=== PATIENT | male | born 1945 | race Caucasian/White ===

== ENCOUNTER 2016-06-26 10:02 | Outpatient (CLI) | payer MEDICARE, OTHER ==
[2016-02-11 11:55] VITALS: BP 121/58
== END 2016-06-26 10:03 ==
LOC: LAB 10:02
PROVIDERS: ATTEND Internal Medicine Clinical Cardiac Electrophysiology
DX: Z51.81 Encounter for therapeutic drug level monitoring (principal); Z79.01 Long term (current) use of anticoagulants; I48.91 Unspecified atrial fibrillation
CPT/HCPCS: 36415; 85610

== ENCOUNTER 2016-07-04 10:30 | Outpatient (CLI) | payer MEDICARE, OTHER ==
[2016-02-11 11:55] VITALS: BP 121/58
== END 2016-07-04 10:40 ==
LOC: LAB 10:30
PROVIDERS: ATTEND Internal Medicine Clinical Cardiac Electrophysiology
DX: Z51.81 Encounter for therapeutic drug level monitoring (principal); Z79.01 Long term (current) use of anticoagulants; I48.91 Unspecified atrial fibrillation
CPT/HCPCS: 36415; 85610

== ENCOUNTER 2016-07-17 10:15 | Outpatient (CLI) | payer MEDICARE, OTHER ==
[2016-02-11 11:55] VITALS: BP 121/58
== END 2016-07-17 10:16 ==
LOC: LAB 10:15
PROVIDERS: ATTEND Internal Medicine Clinical Cardiac Electrophysiology
DX: I48.91 Unspecified atrial fibrillation (principal)
CPT/HCPCS: 36415; 85610

== ENCOUNTER 2016-07-31 10:49 | Outpatient (CLI) | payer MEDICARE, OTHER ==
[2016-02-11 11:55] VITALS: BP 121/58
== END 2016-07-31 10:50 ==
LOC: LAB 10:49
PROVIDERS: ATTEND Internal Medicine Clinical Cardiac Electrophysiology
DX: I48.91 Unspecified atrial fibrillation (principal)
CPT/HCPCS: 36415; 85610

== ENCOUNTER 2016-08-27 10:13 | Outpatient (CLI) | payer MEDICARE, OTHER ==
[2016-02-11 11:55] VITALS: BP 121/58
== END 2016-08-27 10:14 ==
LOC: LAB 10:13
PROVIDERS: ATTEND Internal Medicine Clinical Cardiac Electrophysiology
DX: Z51.81 Encounter for therapeutic drug level monitoring (principal); Z79.01 Long term (current) use of anticoagulants; I48.91 Unspecified atrial fibrillation
CPT/HCPCS: 36415; 85610

== ENCOUNTER 2016-09-11 11:00 | Outpatient (CLI) | payer MEDICARE, OTHER ==
[2016-02-11 11:55] VITALS: BP 121/58
[2016-09-11 11:28] LABS: BASOPHILS % 0.5 (0.0-1.5); EOSINOPHILS % 3.1 % (0.0-6.8); MEAN CORPUSCULAR HEMOGLOBIN 21.2 pg (28.0-34.0); MEAN CORPUSCULAR VOLUME 78.3 fl (80.0-100.0); MONOCYTES % 8.1 % (0.0-11.0); NEUTROPHILS # 4.4 # k/uL (1.4-7.7)
== END 2016-09-11 11:02 ==
LOC: LAB 11:00
PROVIDERS: ATTEND Internal Medicine Clinical Cardiac Electrophysiology
DX: Z51.81 Encounter for therapeutic drug level monitoring (principal); Z79.01 Long term (current) use of anticoagulants; I48.91 Unspecified atrial fibrillation; Z12.5 Encounter for screening for malignant neoplasm of prostate
CPT/HCPCS: 36415; 84153; 85025; 85610

== ENCOUNTER 2016-09-25 09:47 | Outpatient (CLI) | payer MEDICARE, OTHER ==
[2016-02-11 11:55] VITALS: BP 121/58
== END 2016-09-25 09:50 ==
LOC: LAB 09:47
PROVIDERS: ATTEND Internal Medicine Clinical Cardiac Electrophysiology
DX: Z51.81 Encounter for therapeutic drug level monitoring (principal); Z79.01 Long term (current) use of anticoagulants; I48.91 Unspecified atrial fibrillation
CPT/HCPCS: 36415; 85610

== ENCOUNTER 2016-09-26 09:13 | Outpatient (CLI) | payer MEDICARE, OTHER ==
[2016-02-11 11:55] VITALS: BP 121/58
== END 2016-09-26 09:14 ==
LOC: LAB 09:13
PROVIDERS: ATTEND Internal Medicine Cardiovascular Disease
DX: Z51.81 Encounter for therapeutic drug level monitoring (principal); Z79.01 Long term (current) use of anticoagulants; I48.91 Unspecified atrial fibrillation
CPT/HCPCS: 36415; 85610

== ENCOUNTER 2016-09-27 08:52 | Outpatient (CLI) | payer MEDICARE, OTHER ==
[2016-02-11 11:55] VITALS: BP 121/58
== END 2016-09-27 08:53 ==
LOC: LAB 08:52
PROVIDERS: ATTEND Internal Medicine Clinical Cardiac Electrophysiology
DX: Z51.81 Encounter for therapeutic drug level monitoring (principal); Z79.01 Long term (current) use of anticoagulants; I48.91 Unspecified atrial fibrillation
CPT/HCPCS: 36415; 85610

== ENCOUNTER 2016-09-30 08:45 | Outpatient (CLI) | payer MEDICARE, OTHER ==
[2016-02-11 11:55] VITALS: BP 121/58
== END 2016-09-30 08:46 ==
LOC: LAB 08:45
PROVIDERS: ATTEND Internal Medicine Cardiovascular Disease
DX: Z51.81 Encounter for therapeutic drug level monitoring (principal); Z79.01 Long term (current) use of anticoagulants; I48.91 Unspecified atrial fibrillation
CPT/HCPCS: 36415; 85610

== ENCOUNTER 2016-10-04 11:00 | Outpatient (CLI) | payer MEDICARE, OTHER ==
[2016-02-11 11:55] VITALS: BP 121/58
== END 2016-10-04 11:02 ==
LOC: LAB 11:00
PROVIDERS: ATTEND Internal Medicine Clinical Cardiac Electrophysiology
DX: Z51.81 Encounter for therapeutic drug level monitoring (principal); Z79.01 Long term (current) use of anticoagulants; I48.91 Unspecified atrial fibrillation
CPT/HCPCS: 36415; 85610

== ENCOUNTER 2016-10-10 13:44 | Outpatient (CLI) | payer MEDICARE, OTHER ==
[2016-02-11 11:55] VITALS: BP 121/58
== END 2016-10-10 13:45 ==
LOC: LAB 13:44
PROVIDERS: ATTEND Internal Medicine Clinical Cardiac Electrophysiology
DX: Z51.81 Encounter for therapeutic drug level monitoring (principal); Z79.01 Long term (current) use of anticoagulants; I48.2 Chronic atrial fibrillation
CPT/HCPCS: 36415; 85610

== ENCOUNTER 2016-10-18 09:09 | Outpatient (CLI) | payer MEDICARE, OTHER ==
[2016-02-11 11:55] VITALS: BP 121/58
== END 2016-10-18 09:10 ==
LOC: LAB 09:09
PROVIDERS: ATTEND Internal Medicine Cardiovascular Disease
DX: Z51.81 Encounter for therapeutic drug level monitoring (principal); Z79.01 Long term (current) use of anticoagulants; I48.91 Unspecified atrial fibrillation
CPT/HCPCS: 36415; 85610

== ENCOUNTER 2016-10-31 07:27 | Outpatient (CLI) | payer MEDICARE, OTHER ==
[2016-02-11 11:55] VITALS: BP 121/58
== END 2016-10-31 07:30 ==
LOC: LAB 07:27
PROVIDERS: ATTEND Internal Medicine Clinical Cardiac Electrophysiology
DX: I48.91 Unspecified atrial fibrillation (principal)
CPT/HCPCS: 36415; 85610

== ENCOUNTER 2016-11-05 13:08 | Outpatient (CLI) | payer MEDICARE, OTHER ==
[2016-02-11 11:55] VITALS: BP 121/58
--- NOTE | 2016-11-05 17:51 | Diagnostic Imaging Report ---
[facility] [address] [facility].[address] [id number] Report Submission Date: November 05, 2016 4:00:12 PM CDT Patient Study Name: NEENA KHAN Date: November 05, 2016 1:12:52 PM CDT Modality Type: CR Gender: M Description: CHEST : 45 Institution: [facility] Physician: ALEJO GUTIERREZ Chest 2 views History: Hemoptysis Findings: Aortic valve replacement, triple lead implantable cardiac defibrillator, calcified granulomas, trace pleural effusions, mild cardiomegaly , and pulmonary vascular congestion are observed. There is no confluent infiltrate. Proximal right humerus suture anchors are present. Mild hyperinflation is present. The implantable cardiac defibrillator new. The trace pleural effusions and pulmonary vascular congestion are new since the December 01, 2015 exam. Cardiomegaly has progressed. Impression: New implantable defibrillator and new mild congestive heart failure. Otherwise no change. Electronically signed on November 05, 2016 4:00:12 PM CDT by: Jorje ULLOA
== END 2016-11-05 13:10 ==
LOC: RAD 13:08
PROVIDERS: ATTEND Internal Medicine Cardiovascular Disease
DX: R09.3 Abnormal sputum (principal); I48.0 Paroxysmal atrial fibrillation
CPT/HCPCS: 71020

== ENCOUNTER 2016-11-15 10:16 | Outpatient (CLI) | payer MEDICARE, OTHER ==
[2016-02-11 11:55] VITALS: BP 121/58
== END 2016-11-15 10:17 ==
LOC: LAB 10:16
PROVIDERS: ATTEND Internal Medicine Clinical Cardiac Electrophysiology
DX: I48.91 Unspecified atrial fibrillation (principal)
CPT/HCPCS: 36415; 85610

== ENCOUNTER 2016-11-22 08:52 | Outpatient (CLI) | payer MEDICARE, OTHER ==
[2016-02-11 11:55] VITALS: BP 121/58
== END 2016-11-22 09:35 ==
LOC: LAB 08:52
PROVIDERS: ATTEND Internal Medicine Cardiovascular Disease
DX: I48.91 Unspecified atrial fibrillation (principal)
CPT/HCPCS: 36415; 85610

== ENCOUNTER 2016-11-29 11:22 | Outpatient (CLI) | payer MEDICARE, OTHER ==
[2016-02-11 11:55] VITALS: BP 121/58
== END 2016-11-29 11:30 ==
LOC: LAB 11:22
PROVIDERS: ATTEND Internal Medicine Clinical Cardiac Electrophysiology
DX: I48.91 Unspecified atrial fibrillation (principal)
CPT/HCPCS: 36415; 85610

== ENCOUNTER → 2016-12-13 | Outpatient (CLI) | payer MEDICARE, OTHER ==
[2016-02-11 11:55] VITALS: BP 121/58
== END ==
LOC: LAB 10:06
PROVIDERS: ATTEND Internal Medicine Clinical Cardiac Electrophysiology
DX: I48.91 Unspecified atrial fibrillation (principal)
CPT/HCPCS: 36415; 85610

== ENCOUNTER 2016-12-27 10:34 | Outpatient (CLI) | payer MEDICARE, OTHER ==
[2016-02-11 11:55] VITALS: BP 121/58
== END 2016-12-27 10:35 ==
LOC: LAB 10:34
PROVIDERS: ATTEND Internal Medicine Cardiovascular Disease
DX: Z79.01 Long term (current) use of anticoagulants (principal)
CPT/HCPCS: 36415; 85610

== ENCOUNTER 2017-01-10 12:45 | Outpatient (CLI) | payer MEDICARE, OTHER ==
[2016-02-11 11:55] VITALS: BP 121/58
== END 2017-01-10 12:46 ==
LOC: LAB 12:45
PROVIDERS: ATTEND Internal Medicine Cardiovascular Disease
DX: Z79.01 Long term (current) use of anticoagulants (principal)
CPT/HCPCS: 36415; 85610

== ENCOUNTER 2017-02-06 09:42 | Outpatient (CLI) | payer MEDICARE, OTHER ==
[2016-02-11 11:55] VITALS: BP 121/58
== END 2017-02-06 09:43 ==
LOC: LAB 09:42
PROVIDERS: ATTEND Internal Medicine Cardiovascular Disease
DX: Z79.01 Long term (current) use of anticoagulants (principal)
CPT/HCPCS: 36415; 85610

== ENCOUNTER 2017-02-11 08:07 | Outpatient (CLI) | payer MEDICARE, OTHER ==
[2016-02-11 11:55] VITALS: BP 121/58
== END 2017-02-11 08:10 ==
LOC: LAB 08:07
PROVIDERS: ATTEND Internal Medicine Cardiovascular Disease
DX: Z79.01 Long term (current) use of anticoagulants (principal)
CPT/HCPCS: 36415; 85610

== ENCOUNTER 2017-02-14 12:49 | Outpatient (CLI) | payer MEDICARE, OTHER ==
[2016-02-11 11:55] VITALS: BP 121/58
== END 2017-02-14 12:50 ==
LOC: LAB 12:49
PROVIDERS: ATTEND Internal Medicine Cardiovascular Disease
DX: Z79.01 Long term (current) use of anticoagulants (principal)
CPT/HCPCS: 36415; 85610

== ENCOUNTER 2017-02-20 09:32 | Outpatient (CLI) | payer MEDICARE, OTHER ==
[2016-02-11 11:55] VITALS: BP 121/58
[2017-02-20 10:21] LABS: eGFR (African) > 60; eGFR (Non-African) > 60
== END 2017-02-20 09:33 ==
LOC: LAB 09:32
PROVIDERS: ATTEND Family Medicine
DX: E11.9 Type 2 diabetes mellitus without complications (principal)
CPT/HCPCS: 36415; 80053; 80061; 83036

== ENCOUNTER 2017-03-10 10:57 | Outpatient (CLI) | payer MEDICARE, OTHER ==
[2016-02-11 11:55] VITALS: BP 121/58
== END 2017-03-10 11:00 ==
LOC: LAB 10:57
PROVIDERS: ATTEND Internal Medicine Cardiovascular Disease
DX: Z79.01 Long term (current) use of anticoagulants (principal)
CPT/HCPCS: 36415; 85610

== ENCOUNTER 2017-03-12 13:39 | Outpatient (CLI) | payer MEDICARE, OTHER ==
[2016-02-11 11:55] VITALS: BP 121/58
--- NOTE | 2017-03-12 14:56 | Diagnostic Imaging Report ---
OBDULIA GUTIERREZ [facility] [address] [facility].[address] [address] Report Submission Date: Mar 12, 2017 2:20:58 PM CDT Patient Study Name: NEENA KHAN Date: Mar 12, 2017 1:51:43 PM CDT Modality Type: CR Gender: M Description: LOWER EXTREMITY : 45 Institution: [facility] Physician: OBDULIA GUTIERREZ Examination: Plain film knee History: Knee discomfort Findings: 3 views of the knee demonstrates diffuse osteopenia. Chondrocalcinosis. No evidence for fracture line. Mild tibial spine and lateral ossific spurring. Large joint effusion. Posterior vascular calcifications. Impression: Osteopenia and degenerative changes. Chondrocalcinosis. Joint effusion. No fracture. Electronically signed on Mar 12, 2017 2:20:58 PM CDT by: Jb ULLOA
== END 2017-03-12 13:40 ==
LOC: RAD 13:39
PROVIDERS: ATTEND Family Medicine
DX: M25.562 Pain in left knee (principal)
CPT/HCPCS: 73562

== ENCOUNTER 2017-03-24 11:54 | Outpatient (CLI) | payer MEDICARE, OTHER ==
[2016-02-11 11:55] VITALS: BP 121/58
== END 2017-03-24 11:55 ==
LOC: LAB 11:54
PROVIDERS: ATTEND Internal Medicine Cardiovascular Disease
DX: Z79.01 Long term (current) use of anticoagulants (principal)
CPT/HCPCS: 36415; 85610

== ENCOUNTER 2017-04-08 10:24 | Outpatient (CLI) | payer MEDICARE, OTHER ==
[2016-02-11 11:55] VITALS: BP 121/58
== END 2017-04-08 10:25 ==
LOC: LAB 10:24
PROVIDERS: ATTEND Internal Medicine Cardiovascular Disease
DX: Z79.01 Long term (current) use of anticoagulants (principal)
CPT/HCPCS: 36415; 85610

== ENCOUNTER 2017-04-22 11:03 | Outpatient (CLI) | payer MEDICARE, OTHER ==
[2016-02-11 11:55] VITALS: BP 121/58
== END 2017-04-22 14:30 ==
LOC: LAB 11:03
PROVIDERS: ATTEND Internal Medicine Cardiovascular Disease
DX: Z79.01 Long term (current) use of anticoagulants (principal)
CPT/HCPCS: 36415; 85610

== ENCOUNTER 2017-05-06 10:45 | Outpatient (CLI) | payer MEDICARE, OTHER ==
[2016-02-11 11:55] VITALS: BP 121/58
== END 2017-05-06 10:46 ==
LOC: LAB 10:45
PROVIDERS: ATTEND Internal Medicine Cardiovascular Disease
DX: Z79.01 Long term (current) use of anticoagulants (principal)
CPT/HCPCS: 36415; 85610

== ENCOUNTER 2017-05-20 14:14 | Outpatient (CLI) | payer MEDICARE, OTHER ==
[2016-02-11 11:55] VITALS: BP 121/58
== END 2017-05-20 14:20 ==
LOC: LAB 14:14
PROVIDERS: ATTEND Internal Medicine Cardiovascular Disease
DX: Z79.01 Long term (current) use of anticoagulants (principal)
CPT/HCPCS: 36415; 85610

== ENCOUNTER 2017-06-03 13:33 | Outpatient (CLI) | payer MEDICARE, OTHER ==
[2016-02-11 11:55] VITALS: BP 121/58
== END 2017-06-03 13:35 ==
LOC: LAB 13:33
PROVIDERS: ATTEND Internal Medicine Cardiovascular Disease
DX: Z79.01 Long term (current) use of anticoagulants (principal)
CPT/HCPCS: 36415; 85610

== ENCOUNTER 2017-06-30 10:35 | Outpatient (CLI) | payer MEDICARE, OTHER ==
[2016-02-11 11:55] VITALS: BP 121/58
== END 2017-06-30 10:36 ==
LOC: LAB 10:35
PROVIDERS: ATTEND Internal Medicine Cardiovascular Disease
DX: Z79.01 Long term (current) use of anticoagulants (principal)
CPT/HCPCS: 36415; 85610

== ENCOUNTER 2017-07-29 10:14 | Outpatient (CLI) | payer MEDICARE, OTHER ==
[2016-02-11 11:55] VITALS: BP 121/58
== END 2017-07-29 10:15 ==
LOC: LAB 10:14
PROVIDERS: ATTEND Internal Medicine Cardiovascular Disease
DX: Z79.01 Long term (current) use of anticoagulants (principal)
CPT/HCPCS: 36415; 85610

== ENCOUNTER 2017-08-21 10:41 | Outpatient (CLI) | payer MEDICARE, OTHER ==
[2016-02-11 11:55] VITALS: BP 121/58
== END 2017-08-21 10:50 ==
LOC: LAB 10:41
PROVIDERS: ATTEND Internal Medicine Cardiovascular Disease
DX: Z79.01 Long term (current) use of anticoagulants (principal)
CPT/HCPCS: 36415; 85610

== ENCOUNTER 2017-08-25 10:41 | Outpatient (CLI) | payer MEDICARE, OTHER ==
[2016-02-11 11:55] VITALS: BP 121/58
== END 2017-08-25 10:42 ==
LOC: LAB 10:41
PROVIDERS: ATTEND Internal Medicine Cardiovascular Disease
DX: Z79.01 Long term (current) use of anticoagulants (principal)
CPT/HCPCS: 36415; 85610

== ENCOUNTER 2017-09-02 10:54 | Outpatient (CLI) | payer MEDICARE, OTHER ==
[2016-02-11 11:55] VITALS: BP 121/58
== END 2017-09-02 10:55 ==
LOC: LAB 10:54
PROVIDERS: ATTEND Internal Medicine Cardiovascular Disease
DX: Z79.01 Long term (current) use of anticoagulants (principal)
CPT/HCPCS: 36415; 85610

== ENCOUNTER 2017-09-09 10:43 | Outpatient (CLI) | payer MEDICARE, OTHER ==
[2016-02-11 11:55] VITALS: BP 121/58
== END 2017-09-09 10:44 ==
LOC: LAB 10:43
PROVIDERS: ATTEND Internal Medicine Cardiovascular Disease
DX: Z79.01 Long term (current) use of anticoagulants (principal)
CPT/HCPCS: 36415; 85610

== ENCOUNTER 2017-09-23 09:36 | Outpatient (CLI) | payer MEDICARE, OTHER ==
[2016-02-11 11:55] VITALS: BP 121/58
[2017-09-23 10:43] LABS: eGFR (African) > 60; eGFR (Non-African) > 60
[2017-09-23 10:50] LABS: MEAN CORPUSCULAR HEMOGLOBIN 20.6 pg (28.0-34.0); MEAN CORPUSCULAR VOLUME 80.1 fl (80.0-100.0)
[2017-09-23 11:03] LABS: ANISOCYTOSIS 1+ (NEGATIVE); HYPOCHROMASIA 1+ (NEGATIVE)
--- NOTE | 2017-09-23 11:41 | Diagnostic Imaging Report ---
ITALIA KWONG [facility] [address] [facility].[address] [address] Report Submission Date: Sep 23, 2017 11:33:30 AM CDT Patient Study Name: NEENA KHAN Date: Sep 23, 2017 11:01:00 AM CDT Modality Type: CT\SR Gender: M Description: CT ABD PELVIS W/ CON : 45 Institution: [facility] Physician: ITALIA KWONG Examination: CT Abdomen/pelvis History: HEPATOMEGALY, NEW ONSET ASCITES (Hx) Comparison exams: None available Technique: CT Abdomen/pelvis with IV protocol. Findings: Liver, spleen, adrenals, pancreas, kidneys are without gross central irregularity. No abnormal enhancement. Gallbladder appears to be prominent. No central gallstone. Scattered renal calyceal and vascular calcifications. Ureters do not appear to be abnormally dilated in their course through the abdomen and pelvis. Significant amount of abdominal free fluid extending from the dome the diaphragms inferiorly into the pelvis. No peripheral enhancement to suggest abscess. Atherosclerotic disease and mural thickening involving abdominal aorta. Prominent cardiac silhouette. No pericardial effusion. Vascular calcifications. Artifact from cardiac leads. Bowel unopacified limiting evaluation. No abnormal small bowel dilation. Stool within the large bowel limiting sensitivity. Appendix not visualized. Sigmoid diverticula. Osseous structures demonstrate degenerative changes. Curvature to the left. Large left base pleural effusion with adjacent compressive atelectasis. Hazy infiltrate/atelectasis at the right lung base. Impression: Significant abdominal ascites. No evidence for overt abscess. Correlate with any underlying medical condition with regards to determine etiology for abdominal ascites. Hydropic gallbladder without evidence for central gallstone. No evidence for upper abdominal organ central lesion. Sigmoid diverticulosis. Bilateral renal calyceal and vascular calcifications. Large left lung base effusion with adjacent compressive atelectasis. Electronically signed on Sep 23, 2017 11:33:30 AM CDT by: Jb ULLOA
== END 2017-09-23 09:38 ==
LOC: LAB 09:36
PROVIDERS: ATTEND Family Medicine
DX: R16.0 Hepatomegaly, not elsewhere classified (principal); R18.8 Other ascites; R17 Unspecified jaundice; Z51.81 Encounter for therapeutic drug level monitoring; D50.9 Iron deficiency anemia, unspecified
CPT/HCPCS: 36415; 74177; 80053; 85025; 85610; Q9967

== ENCOUNTER 2017-09-30 11:04 | Outpatient (CLI) | payer MEDICARE, OTHER ==
[2016-02-11 11:55] VITALS: BP 121/58
== END 2017-09-30 11:05 ==
LOC: LAB 11:04
PROVIDERS: ATTEND Internal Medicine Cardiovascular Disease
DX: Z79.01 Long term (current) use of anticoagulants (principal)
CPT/HCPCS: 36415; 85610

== ENCOUNTER 2017-10-20 10:04 | Outpatient (CLI) | payer MEDICARE, OTHER ==
[2016-02-11 11:55] VITALS: BP 121/58
[2017-10-20 10:58] LABS: MEAN CORPUSCULAR HEMOGLOBIN 21.9 pg (28.0-34.0); MEAN CORPUSCULAR VOLUME 79.8 fl (80.0-100.0)
[2017-10-20 16:31] LABS: TOTAL PROTEIN 7.1 g/dL (6.0-8.5)
== END 2017-10-20 10:05 ==
LOC: LAB 10:04
PROVIDERS: ATTEND Family Medicine
DX: I50.9 Heart failure, unspecified (principal); D64.9 Anemia, unspecified
CPT/HCPCS: 36415; 80053; 85027

== ENCOUNTER 2017-12-02 09:26 | Outpatient (CLI) | payer MEDICARE, OTHER ==
[2016-02-11 11:55] VITALS: BP 121/58
[2017-12-02 09:49] LABS: BASOPHILS % 0.5 (0.0-1.5); EOSINOPHILS % 3.5 % (0.0-6.8); MEAN CORPUSCULAR HEMOGLOBIN 22.2 pg (28.0-34.0); MEAN CORPUSCULAR VOLUME 79.8 fl (80.0-100.0); MONOCYTES % 9.9 % (0.0-11.0); NEUTROPHILS # 3.6 # k/uL (1.4-7.7)
[2017-12-02 10:17] LABS: eGFR (African) > 60; eGFR (Non-African) > 60
== END 2017-12-02 09:27 ==
LOC: LAB 09:26
PROVIDERS: ATTEND Internal Medicine Gastroenterology
DX: K74.60 Unspecified cirrhosis of liver (principal); R18.8 Other ascites; J90 Pleural effusion, not elsewhere classified; D50.9 Iron deficiency anemia, unspecified
CPT/HCPCS: 36415; 80053; 85025

== ENCOUNTER 2017-12-26 14:05 | Outpatient (CLI) | payer MEDICARE, OTHER ==
[2016-02-11 11:55] VITALS: BP 121/58
[2017-12-26 14:34] LABS: BASOPHILS % 0.8 (0.0-1.5); EOSINOPHILS % 2.2 % (0.0-6.8); MEAN CORPUSCULAR HEMOGLOBIN 20.8 pg (28.0-34.0); MEAN CORPUSCULAR VOLUME 78.7 fl (80.0-100.0); MONOCYTES % 8.9 % (0.0-11.0); NEUTROPHILS # 6.1 # k/uL (1.4-7.7)
[2017-12-26 15:04] LABS: eGFR (African) > 60; eGFR (Non-African) > 60
== END 2017-12-26 14:20 ==
LOC: LAB 14:05
PROVIDERS: ATTEND Internal Medicine Cardiovascular Disease
DX: I50.22 Chronic systolic (congestive) heart failure (principal); I48.0 Paroxysmal atrial fibrillation
CPT/HCPCS: 36415; 80048; 85025

== ENCOUNTER 2018-02-02 13:42 | Outpatient (CLI) | payer MEDICARE, OTHER ==
[2016-02-11 11:55] VITALS: BP 121/58
[2018-02-02 14:45] LABS: MEAN CORPUSCULAR HEMOGLOBIN 19.4 pg (28.0-34.0); MEAN CORPUSCULAR VOLUME 72.5 fl (80.0-100.0)
[2018-02-02 15:19] LABS: eGFR (African) > 60; eGFR (Non-African) > 60
== END 2018-02-02 13:44 ==
LOC: LAB 13:42
PROVIDERS: ATTEND Family Medicine
DX: K74.69 Other cirrhosis of liver (principal)
CPT/HCPCS: 36415; 80048; 85027

== ENCOUNTER 2018-03-03 08:59 | Outpatient (CLI) | payer MEDICARE, OTHER ==
[2016-02-11 11:55] VITALS: BP 121/58
[2018-03-03 10:04] LABS: eGFR (Non-African) > 60
[2018-03-03 11:26] LABS: BASO % 0.6 % (0.0-1.5); EOS % 2.3 % (0.0-6.8); LYMPH ABS # 0.82 thou/uL (0.60-4.00); MCH. 19.2 pg (28.0-34.0); MCV 69.9 fL (80.0-100.0); MONOCYTE % 8.6 % (0.0-11.0); MONOCYTE ABS # 0.71 thou/uL (0.00-0.90)
== END 2018-03-03 09:00 ==
LOC: LAB 08:59
PROVIDERS: ATTEND Internal Medicine Gastroenterology
DX: R18.8 Other ascites (principal); K74.60 Unspecified cirrhosis of liver; J90 Pleural effusion, not elsewhere classified; K92.2 Gastrointestinal hemorrhage, unspecified
CPT/HCPCS: 36415; 80053; 85025

== ENCOUNTER 2018-03-24 09:26 | Outpatient (CLI) | payer MEDICARE, OTHER ==
[2016-02-11 11:55] VITALS: BP 121/58
[2018-03-24 11:26] LABS: eGFR (Non-African) > 60
[2018-03-24 11:27] LABS: MEAN CORPUSCULAR HEMOGLOBIN 19.6 pg (28.0-34.0)
[2018-03-24 11:28] LABS: BASOPHILS % 0.3 (0.0-1.5); EOSINOPHILS % 2.8 % (0.0-6.8); MONOCYTES % 9.2 % (0.0-11.0); NEUTROPHILS # 6.6 # k/uL (1.4-7.7)
[2018-03-24 16:50] LABS: IRON SERUM 29 ug/dL (59-158); SERUM IRON 29 ug/dL (59-158)
== END 2018-03-24 09:28 ==
LOC: LAB 09:26
PROVIDERS: ATTEND Internal Medicine Gastroenterology
DX: R18.8 Other ascites (principal); K74.60 Unspecified cirrhosis of liver; J90 Pleural effusion, not elsewhere classified
CPT/HCPCS: 36415; 80053; 83540; 83550; 84443; 85025

== ENCOUNTER 2018-05-20 13:31 | Outpatient (CLI) | payer MEDICARE, OTHER ==
[2016-02-11 11:55] VITALS: BP 121/58
[2018-05-20 13:56] LABS: BASOPHILS % 0.3 (0.0-1.5); EOSINOPHILS % 5.5 % (0.0-6.8); MEAN CORPUSCULAR HEMOGLOBIN 25.2 pg (28.0-34.0); MONOCYTES % 6.5 % (0.0-11.0); NEUTROPHILS # 5.1 # k/uL (1.4-7.7)
[2018-05-20 23:51] LABS: IRON SERUM 69 ug/dL (59-158); SERUM IRON 69 ug/dL (59-158)
--- NOTE | 2018-05-21 04:51 | Diagnostic Imaging Report ---
OBDULIA GUTIERREZ [facility] [address] [facility] [address] [place] [address]. [id number] Report Submission Date: May 20, 2018 3:59:29 PM SYSTEM DEVELOPMENT MANAGER Patient Study Name: NEENA KHAN Date: May 20, 2018 2:53:08 PM SYSTEM DEVELOPMENT MANAGER Modality Type: DX Gender: M Description: SHOULDER : 45 Institution: [facility] Physician: OBDULIA GUTIERREZ Examination: Plain film right shoulder History: CHRONIC RT SHOULDER PAIN. PT STATES HE FELL IN JANUARY AND HAS BEEN HURTING WORSE SINCE THEN. PT STATES HX OF SHOULDER SURGERY (Hx) Comparison exams: None provided Findings: 3 views of the right shoulder demonstrates diffuse osteopenia. Fixation anchors involving the humeral head. Cortical irregularity involving the humeral head. Articular degenerative changes. Impression: Articular degenerative changes with cortical irregularity involving the humeral head - chronicity indeterminate without/exams. If older shoulder plain films cannot be made available to document stability, consider obtaining CT shoulder to better evaluate cortical margins. Electronically signed on May 20, 2018 3:59:29 PM SYSTEM DEVELOPMENT MANAGER by: Jb ULLOA
== END 2018-05-20 13:33 ==
LOC: LAB 13:31
PROVIDERS: ATTEND Internal Medicine Gastroenterology
DX: G89.29 Other chronic pain (principal); M25.511 Pain in right shoulder; D50.9 Iron deficiency anemia, unspecified; M19.011 Primary osteoarthritis, right shoulder
CPT/HCPCS: 36415; 73030; 83540; 83550; 85025

== ENCOUNTER 2018-06-17 20:38 | Outpatient (CLI) | payer MEDICARE, OTHER ==
[2016-02-11 11:55] VITALS: BP 121/58
--- NOTE | 2018-06-18 18:59 | Diagnostic Imaging Report ---
OBDULIA GUTIERREZ [facility] [address] [facility] [address] [address] Report Submission Date: Jun 17, 2018 5:59:33 PM DRENCHER Patient Study Name: NEENA KHAN Date: Jun 17, 2018 4:37:33 PM DRENCHER Modality Type: DX Gender: M Description: LOWER EXTREMITY : 45 Institution: [facility] Physician: OBDULIA GUTIERREZ Left knee, AP, lateral and sunrise views HISTORY Knee pain, fall, swelling. FINDINGS Large suprapatellar joint effusion is present. There is joint space narrowing in the medial, lateral and patellofemoral compartments. There is calcification of the meniscus. Slight irregularity is noted in the patella, consistent with nondisplaced fracture. IMPRESSION Nondisplaced patellar fracture. Large joint effusion. Advanced osteoarthritis. Electronically signed on Jun 17, 2018 5:59:33 PM DRENCHER by: Quinton ULLOA
== END 2018-06-17 20:45 ==
LOC: RAD 20:38
PROVIDERS: ATTEND Family Medicine
DX: S82.002A Unspecified fracture of left patella, initial encounter for closed fracture (principal); W19.XXXA Unspecified fall, initial encounter; M25.462 Effusion, left knee; M17.12 Unilateral primary osteoarthritis, left knee
CPT/HCPCS: 73562

== ENCOUNTER 2018-06-25 11:11 | Outpatient (CLI) | payer MEDICARE, OTHER ==
[2016-02-11 11:55] VITALS: BP 121/58
[2018-06-25 11:28] LABS: BASOPHILS % 0.5 (0.0-1.5); MONOCYTES % 6.5 % (0.0-11.0); NEUTROPHILS # 6.1 # k/uL (1.4-7.7)
[2018-06-25 11:58] LABS: eGFR (Non-African) > 60
== END 2018-06-25 11:13 ==
LOC: LAB 11:11
PROVIDERS: ATTEND Internal Medicine Gastroenterology
DX: R18.8 Other ascites (principal); K74.60 Unspecified cirrhosis of liver; D50.9 Iron deficiency anemia, unspecified; J90 Pleural effusion, not elsewhere classified
CPT/HCPCS: 36415; 80053; 85025

== ENCOUNTER 2018-08-20 10:57 | Outpatient (CLI) | payer MEDICARE, OTHER ==
[2016-02-11 11:55] VITALS: BP 121/58
[2018-08-20 11:54] LABS: BASOPHILS % 1.2 (0.0-1.5); EOSINOPHILS % 1.5 % (0.0-6.8); MEAN CORPUSCULAR HEMOGLOBIN 27.8 pg (28.0-34.0); MONOCYTES % 9.3 % (0.0-11.0); NEUTROPHILS # 4.2 # k/uL (1.4-7.7)
[2018-08-20 12:26] LABS: eGFR (Non-African) > 60
== END 2018-08-20 11:00 ==
LOC: LAB 10:57
PROVIDERS: ATTEND Internal Medicine Cardiovascular Disease
DX: I50.42 Chronic combined systolic (congestive) and diastolic (congestive) heart failure (principal); I48.0 Paroxysmal atrial fibrillation
CPT/HCPCS: 36415; 80053; 82330; 82542; 85025; 85610

== ENCOUNTER 2018-08-26 14:46 | Outpatient (CLI) | payer MEDICARE, OTHER ==
[2016-02-11 11:55] VITALS: BP 121/58
[2018-08-26 15:16] LABS: MEAN CORPUSCULAR HEMOGLOBIN 27.9 pg (28.0-34.0)
[2018-08-26 15:17] LABS: BASOPHILS % 2.3 (0.0-1.5); MONOCYTES % 7.1 % (0.0-11.0); NEUTROPHILS # 5.4 # k/uL (1.4-7.7)
[2018-08-26 15:37] LABS: eGFR (Non-African) > 60
== END 2018-08-26 14:48 ==
LOC: LAB 14:46
PROVIDERS: ATTEND Internal Medicine Gastroenterology
DX: K74.60 Unspecified cirrhosis of liver (principal); R18.8 Other ascites; D50.9 Iron deficiency anemia, unspecified; J90 Pleural effusion, not elsewhere classified
CPT/HCPCS: 36415; 80053; 85025

== ENCOUNTER 2018-11-23 11:30 | Outpatient (CLI) | payer MEDICARE, OTHER ==
[2016-02-11 11:55] VITALS: BP 121/58
[2018-12-02 15:31] LABS: eGFR (Non-African) > 60
[2018-12-02 15:32] LABS: BASOPHILS % 0.5 % (0.0-1.5); NEUTROPHILS # 6.1 # k/uL (1.4-7.7)
== END 2018-11-23 11:35 | disposition home or self-care (01) ==
LOC: LAB 11:30
PROVIDERS: ATTEND Nurse Practitioner Adult Health
DX: K72.90 Hepatic failure, unspecified without coma (principal); K74.60 Unspecified cirrhosis of liver; R18.8 Other ascites
CPT/HCPCS: 36415; 80053; 85025

== ENCOUNTER 2019-01-26 10:39 | Outpatient (CLI) | payer MEDICARE, OTHER ==
[2016-02-11 11:55] VITALS: BP 121/58
[2019-01-26 10:50] LABS: BASOPHILS % 0.4 % (0.0-1.5); NEUTROPHILS # 7.8 # k/uL (1.4-7.7)
[2019-01-26 11:01] LABS: eGFR (Non-African) > 60
== END 2019-01-26 10:42 ==
LOC: LAB 10:39
PROVIDERS: ATTEND Internal Medicine Gastroenterology
DX: K74.60 Unspecified cirrhosis of liver (principal); K22.70 Barrett's esophagus without dysplasia
CPT/HCPCS: 36415; 80053; 85025

== ENCOUNTER 2019-03-26 11:14 | Outpatient (CLI) | payer MEDICARE, OTHER ==
[2016-02-11 11:55] VITALS: BP 121/58
[2019-03-26 11:58] LABS: BASOPHILS % 0.5 % (0.0-1.5); NEUTROPHILS # 6.1 # k/uL (1.4-7.7)
[2019-03-26 12:00] LABS: eGFR (Non-African) 53
== END 2019-03-26 11:19 ==
LOC: LAB 11:14
PROVIDERS: ATTEND Internal Medicine Gastroenterology
DX: K74.60 Unspecified cirrhosis of liver (principal); K72.90 Hepatic failure, unspecified without coma; R18.8 Other ascites
CPT/HCPCS: 36415; 80053; 85025

== ENCOUNTER 2019-04-27 13:58 | Outpatient (CLI) | payer MEDICARE, OTHER ==
[2016-02-11 11:55] VITALS: BP 121/58
[2019-04-27 14:25] LABS: BASOPHILS % 0.4 % (0.0-1.5); NEUTROPHILS # 6.5 # k/uL (1.4-7.7)
[2019-04-27 15:41] LABS: eGFR (Non-African) > 60
== END 2019-04-27 14:05 ==
LOC: LAB 13:58
PROVIDERS: ATTEND Nurse Practitioner Adult Health
DX: K74.60 Unspecified cirrhosis of liver (principal); K72.90 Hepatic failure, unspecified without coma; K86.1 Other chronic pancreatitis; K22.10 Ulcer of esophagus without bleeding; K59.00 Constipation, unspecified
CPT/HCPCS: 36415; 80053; 85025